=== PATIENT | female | born 1980 | race Caucasian/White ===

== ENCOUNTER → 2017-01-20 | Outpatient (CLI) | payer BC ==
--- NOTE | 2017-01-24 16:24 | RADIOLOGY REPORT PS360 ---
DIG MAMM-SCREEN MAGDI W/CAD CAD Screening COMPARISON: Digital mammograms 01/05/2016 and additional views of both breast 01/18/2016 and 12/24/2014 INDICATION: There is a history of breast cancer in patient's sister diagnosed at age 45 and in the patient's paternal aunt diagnosed at age 60. The patient is on control pills. TECHNIQUE: Standard CC and MLO images were obtained. R2 CAD reviewed. FINDINGS: Scattered fibroglandular densities are seen throughout both breasts. There is a possible new asymmetric density lower inner quadrant left breast. There are no suspicious microcalcifications. There are stable small nodes in both axilla. IMPRESSION: Fibrofatty parenchyma with possible new asymmetric density left breast and recommend patient return for spot compression views in MLO and CC projection and ultrasound if this proves to be a true lesion BI-RADS CATEGORY: 0_Incomplete: Need additional imaging RECOMMENDED FOLLOWUP: ADD ADDITIONAL IMAGING (A letter has been sent to the patient regarding results of the study.)
== END ==
LOC: RAD 15:26
DX: Z12.31 Encounter for screening mammogram for malignant neoplasm of breast (principal)
CPT/HCPCS: G0202

== ENCOUNTER → 2017-02-02 | Outpatient (CLI) | payer BC ==
--- NOTE | 2017-02-07 09:18 | RADIOLOGY REPORT PS360 ---
DIG MAMM-DX UNI A/VWS-LT W/CAD, US BREAST-LT COMPLETE W/AXILLA COMPARISON: 01/20/2017, 01/18/2016 INDICATION: Follow-up abnormal mammogram ORDERING PHYSICIAN: [facility] PATIENT AGE: 36 years TECHNIQUE: Spot compression views, straight ML view, and left breast ultrasound FINDINGS: The asymmetric density in the medial aspect of left breast does appear to compress out as fibroglandular tissue. Left breast ultrasound: No cystic or solid lesions evident. IMPRESSION: Benign findings, no convincing evidence of malignancy BI-RADS CATEGORY: 2_Benign RECOMMENDED FOLLOWUP: Screening mammogram in one year (A letter has been sent to the patient regarding results of the study.)
--- NOTE | 2017-02-07 09:18 | RADIOLOGY REPORT PS360 ---
DIG MAMM-DX UNI A/VWS-LT W/CAD, US BREAST-LT COMPLETE W/AXILLA COMPARISON: 01/20/2017, 01/18/2016 INDICATION: Follow-up abnormal mammogram ORDERING PHYSICIAN: [facility] PATIENT AGE: 36 years TECHNIQUE: Spot compression views, straight ML view, and left breast ultrasound FINDINGS: The asymmetric density in the medial aspect of left breast does appear to compress out as fibroglandular tissue. Left breast ultrasound: No cystic or solid lesions evident. IMPRESSION: Benign findings, no convincing evidence of malignancy BI-RADS CATEGORY: 2_Benign RECOMMENDED FOLLOWUP: Screening mammogram in one year (A letter has been sent to the patient regarding results of the study.)
--- NOTE | 2017-02-07 09:18 | RADIOLOGY REPORT PS360 ---
DIG MAMM-DX UNI A/VWS-LT W/CAD, US BREAST-LT COMPLETE W/AXILLA COMPARISON: 01/20/2017, 01/18/2016 INDICATION: Follow-up abnormal mammogram ORDERING PHYSICIAN: [facility] PATIENT AGE: 36 years TECHNIQUE: Spot compression views, straight ML view, and left breast ultrasound FINDINGS: The asymmetric density in the medial aspect of left breast does appear to compress out as fibroglandular tissue. Left breast ultrasound: No cystic or solid lesions evident. IMPRESSION: Benign findings, no convincing evidence of malignancy BI-RADS CATEGORY: 2_Benign RECOMMENDED FOLLOWUP: Screening mammogram in one year (A letter has been sent to the patient regarding results of the study.)
--- NOTE | 2017-02-07 09:18 | RADIOLOGY REPORT PS360 ---
DIG MAMM-DX UNI A/VWS-LT W/CAD, US BREAST-LT COMPLETE W/AXILLA COMPARISON: 01/20/2017, 01/18/2016 INDICATION: Follow-up abnormal mammogram ORDERING PHYSICIAN: [facility] PATIENT AGE: 36 years TECHNIQUE: Spot compression views, straight ML view, and left breast ultrasound FINDINGS: The asymmetric density in the medial aspect of left breast does appear to compress out as fibroglandular tissue. Left breast ultrasound: No cystic or solid lesions evident. IMPRESSION: Benign findings, no convincing evidence of malignancy BI-RADS CATEGORY: 2_Benign RECOMMENDED FOLLOWUP: Screening mammogram in one year (A letter has been sent to the patient regarding results of the study.)
== END ==
LOC: RAD 14:12
DX: R92.8 Other abnormal and inconclusive findings on diagnostic imaging of breast (principal)
CPT/HCPCS: G0206-LT